=== PATIENT | female | born 1965 | race Caucasian/White ===

== ENCOUNTER 2016-02-20 01:48 | Emergency (ER) | payer BC, OTHER ==
[~2016-02-20] VITALS: Ht 165.1 cm; Wt 98.0 kg
[2016-02-20 01:55] VITALS: TEMP 36.6; Ht 165.1 cm; Wt 98.0 kg
[2016-02-20] MEDS ORDERED: CHLOTAB PO (02:40)
[2016-02-20] MEDS ORDERED: PRED50TA PO (02:50)
[2016-02-20] MEDS ORDERED: AMOX875T PO (02:50)
--- NOTE | 2016-02-20 02:51 | EMERGENCY ROOM VISIT NOTE ---
ED Visit Note First contact with patient: 02:06 Chief Complaint: Sinus Infection History of Present Illness: Patient is a 51-year-old female who presents to the emergency Department with complaints of sinus infection. She reports that she has had sinus congestion for the past few weeks. She reports increasing pain to the face for the past few days as well. She reports a history of sinus infections which have presented similarly. She denies any fevers or chills. She has had a moderate amount of nasal congestion. She rates her current discomfort as a 6/10. She is tried Advil allergy/sinus medication over-the- counter with mild relief of symptoms. Patient denies any headaches, dizziness, lightheadedness, blurry vision, double vision, neck pain/stiffness, nausea, or vomiting. Medications: Reviewed and discussed with the patient. Allergies: No known allergies. PMH: No pertinent past medical history. SHx: Patient is a 51-year-old female who lives locally. ROS: All pertinent positive and negative review of systems are appropriately documented in the History of Present Illness. Physical Exam: VITAL SIGNS - Vital signs and nursing notes were reviewed. GENERAL - Well nourished, well developed 51-year-old female in no acute distress. Pt communicates well with provider and answers questions appropriately. SKIN - Without rash. HEAD - NC/AT with no obvious deformities. TTP of the maxilla bilaterally. EYES - PERRL with EOMI bilaterally. Sclera without injection. Palpebral conjunctiva pink and moist. EARS - No deformities of external structures noted on gross examination bilaterally. No pain elicited with palpation of the tragus bilaterally. External auditory canals without discharge or otorrhea. Tympanic membranes pearly reyes without retraction or bulging. No fluid or purulent material visualized behind the TM. Handle of malleus, umbo, cone of light, pars tensa/ flaccid all easily visualized. NOSE - Midline and without cyanosis. No purulent drainage noted. Nasal mucosa with mild mucus discharge. MOUTH/OROPHARYNX - Without perioral cyanosis. Buccal mucosa pink and moist and without leukoplakia. Tongue midline with equal elevation of palate bilaterally. No tonsillar hypertrophy, erythema, or exudates noted. NECK - Neck with FROM. Supple to palpation. No lymphadenopathy noted. No nuchal rigidity. LUNGS - Chest wall symmetric without accessory muscle use, intercostals retractions, or central cyanosis. Normal vesicular breath sounds CTA B/L. No wheezes, rales, or rhonchi appreciated. CARDIAC - RRR with S1/S2. No murmur, rubs, or gallops appreciated. ED Course: Patient was seen and evaluated by myself. I had a lengthy discussion with the patient regarding her ongoing symptoms of sinusitis. She was provided initial dose of Augmentin as well as home packs. She was provided initial dose of prednisone as well. The patient will follow-up on Sunday to have her prescriptions filled as her insurance will kick in on this date. She was educated on worrisome symptoms for return visit to the emergency department. Patient discharged home afebrile and in good condition. In the evaluation and treatment of this patient, the following differential diagnoses were considered: Meningitis, encephalitis, venous sinus thrombosis, viral URI, viral sinusitis, foreign body, amongst others. Impression: Acute Maxillary Sinusitis Discharge Instructions: You have been seen in the emergency department today for sinusitis. You were prescribed Augmentin to be taken as prescribed. This is an antibiotic. All antibiotics have the potential to cause diarrhea. Stop this medication and contact a medical provider if you were to develop any significant adverse side effects including: wheezing, shortness of breath, passing out, vomiting, or a diffuse rash. Always take antibiotics as directed and COMPLETE the ENTIRE course regardless of the improvement of your symptoms. You have been prescribed Prednisone 50 mg to be taken orally once a day for the next 4 days. This is an anti-inflammatory medicine to be used to help minimize your symptoms. You should take the COMPLETE course of the medication. For pain control, you can use the following [id number] medicines (if >12 yo): - Regular strength (325mg/tab) Tylenol (acetaminophen) 2 tabs every 4-6 hours as needed. Do not exceed 12 tablets in a 24 hour period. Avoid taking more than 4 grams (4000 mg) of Tylenol per day. This includes any other sources of acetaminophen you may take on a regular basis. - Regular strength (200 mg/tab) Advil (ibuprofen) 1-2 tabs every 4-6 hours as needed. Do not exceed a dose of 3200 mg per day. Follow-up with your primary care provider from today's visit. Return for any changing or worsening symptoms. Current/Historical Medications Scheduled Amoxicillin & Pot Clavulanate (Augmentin 875-125 mg), 875 MG PO BID Prednisone (Prednisone), 50 MG PO DAILY Scheduled PRN Chlorpheniramine-Pseudoephedri (Advil Allergy Sinus), 1 DOSE PO UD PRN for sinus congestion Allergies Coded Allergies: No Known Allergies (Verified , 02/20/16) Vital Signs Date Time Temp Pulse Resp B/P Pulse Ox O2 Delivery O2 Flow Rate FiO2 02/20/16 03:08 77 18 121/66 97 02/20/16 01:55 36.6 92 18 115/61 96 Room Air Medications Administered Medications (Trade) Dose Ordered Sig/Bing Route Start Time Stop Time Status Last Admin Dose Admin Amoxicillin/ Clavulanate Potassium (Augmentin Tab) 875 mg ONE ONCE PO 02/20/16 03:00 02/20/16 03:01 DC 02/20/16 02:56 875 MG Prednisone (PredniSONE TAB) 60 mg NOW STAT PO 02/20/16 02:47 02/20/16 02:48 DC 02/20/16 02:55 60 MG Departure Information Impression Primary Impression: Maxillary sinusitis, acute Qualified Codes: J01.00 - Acute maxillary sinusitis, unspecified Dispostion Home / Self-Care Condition GOOD Prescriptions Prednisone (Prednisone) 50 Mg Tab 50 MG PO DAILY for 3 Days, #3 TAB Prov: Mike Winter PA-C 02/20/16 Amoxicillin & Pot Clavulanate (Augmentin 875-125 mg) 1 Tab Tab 875 MG PO BID for 10 Days, #20 TAB Prov: Mike Winter PA-C 02/20/16 Referrals No Doctor, Assigned (PCP) Patient Instructions ED Sinusitis Abx Tx, My [facility] Additional Instructions You have been seen in the emergency department today for sinusitis. You were prescribed Augmentin to be taken as prescribed. This is an antibiotic. All antibiotics have the potential to cause diarrhea. Stop this medication and contact a medical provider if you were to develop any significant adverse side effects including: wheezing, shortness of breath, passing out, vomiting, or a diffuse rash. Always take antibiotics as directed and COMPLETE the ENTIRE course regardless of the improvement of your symptoms. You have been prescribed Prednisone 50 mg to be taken orally once a day for the next 4 days. This is an anti-inflammatory medicine to be used to help minimize your symptoms. You should take the COMPLETE course of the medication. For pain control, you can use the following [id number] medicines (if >12 yo): - Regular strength (325mg/tab) Tylenol (acetaminophen) 2 tabs every 4-6 hours as needed. Do not exceed 12 tablets in a 24 hour period. Avoid taking more than 4 grams (4000 mg) of Tylenol per day. This includes any other sources of acetaminophen you may take on a regular basis. - Regular strength (200 mg/tab) Advil (ibuprofen) 1-2 tabs every 4-6 hours as needed. Do not exceed a dose of 3200 mg per day. Follow-up with your primary care provider from today's visit. Return for any changing or worsening symptoms.
[2016-02-20] MEDS ORDERED: AMOXICIL/CLAVU 875MG HOME PACK PO ONE ×2 (03:00)
[2016-02-20] MEDS ORDERED: AMOXICILLIN/CLAVULANATE TAB 875 MG TAB PO ONE (03:00)
[2016-02-20 03:08] VITALS: BP 121/66; PULSE 77; O2SAT 97
== END 2016-02-20 03:09 | disposition home or self-care (01) ==
LOC: C.EDB 01:49
DX: J01.00 Acute maxillary sinusitis, unspecified (principal)